=== PATIENT | female | born 1980 | race Caucasian/White ===

== ENCOUNTER 2019-06-11 08:09 | Emergency (ER) | payer OTHER ==
[~2019-06-11] VITALS: Ht 149.9 cm; Wt 65.8 kg
[~2019-06-11 08:09] MED LIST: LAMICTAL 25 MG25 M1 PO; PROZAC 20 MG20 MG PO; XANAX 0.5 MG0.5 M1 PO; XANAX 0.5 MG0.5 MG PO
[2019-06-11 08:16] VITALS: BP 145/91
[2019-06-11] MEDS ORDERED: BUSPIRONE HCL10 MG PO (08:20)
[2019-06-11] MEDS ORDERED: EFFEXOR XR75 MG PO (08:20)
[2019-06-11] MEDS ORDERED: TRAZODONE HCL50 MG PO (08:20)
[2019-06-11] MEDS ORDERED: KLONOPIN0.5 MG PO (08:36)
== END 2019-06-11 08:43 | disposition home or self-care (01) ==
LOC: M.ERS 08:09
DX: F41.9 Anxiety disorder, unspecified (principal); Z76.0 Encounter for issue of repeat prescription; F32.9 Major depressive disorder, single episode, unspecified; Z88.6 Allergy status to analgesic agent

== ENCOUNTER 2021-05-10 06:29 | Emergency (ER) | payer OTHER ==
[~2021-05-10] VITALS: Ht 149.9 cm; Wt 77.1 kg
[~2021-05-10 06:29] MED LIST changes: +BUSPIRONE HCL10 MG PO; +EFFEXOR XR75 MG PO; +KLONOPIN0.5 MG PO; +TRAZODONE HCL50 MG PO
[2021-05-10] MEDS ORDERED: REXULTI0.25 MG PO (07:14)
[2021-05-10] MEDS ORDERED: JOLESSA1 EACH PO (07:14)
[2021-05-10] MEDS ORDERED: FOLTANX TABLET1 EACH PO (07:15)
[2021-05-10] MEDS ORDERED: FOLIC ACID1 MG PO (07:15)
[2021-05-10] MEDS ORDERED: CALCIUM500 MG PO (07:15)
[2021-05-10] MEDS ORDERED: UNISOM25 MG PO (07:15)
[2021-05-10] MEDS ORDERED: FISH OIL 1,0001 EAC9 PO (07:15)
[2021-05-10] MEDS ORDERED: ONE-A-DAY WOMENS PO (07:16)
[2021-05-10 07:38] LABS: ABSOLUTE EOSINOPHILS 0.1 thou/uL (0.0-0.7); ABSOLUTE LYMPHOCYTES 1.1 thou/uL (0.8-5.3); ABSOLUTE MONOCYTES 0.4 thou/uL (0.0-1.2); BASOPHILS 0.4 %; EOSINOPHILS 0.6 %; HEMATOCRIT 42.6 % (37.0-47.0); HEMOGLOBIN 14.2 gm/dL (12.0-15.0); LYMPHOCYTES 12.5 %; MCH 29.6 pg (26.0-34.0); MCHC 33.3 g/dL (28.0-37.0); MCV 89.1 fL (80.0-100.0); MONOCYTES 4.7 %; NUCLEATED RBCS 0 /100WBC; PLATELET COUNT* 482 thou/uL (150-400); POLYS 81.8 %; RBC 4.78 mil/uL (4.20-5.00); RDW-CV 12.8 % (10.5-14.5); WBC 8.5 thou/uL (4.0-11.0)
[2021-05-10 07:50] LABS: CALCIUM 8.7 mg/dL (8.5-10.1); POTASSIUM 4.2 mmol/L (3.5-5.1)
[2021-05-10 07:54] LABS: ALBUMIN 4.3 g/dL (3.4-5.0); TOTAL BILIRUBIN 0.3 mg/dL (<0.1-1.0); TOTAL PROTEIN 8.3 g/dL (6.4-8.2)
[2021-05-10 08:00] LABS: ALCOHOL < 10 mg/dL (<10); SALICYLATE < 2.8 mg/dL (2.8-20.0)
[2021-05-10 08:01] LABS: ACETAMINOPHEN < 2 ug/mL (10-30)
[2021-05-10] MEDS ORDERED: CLONAZEPAM 0.50.5 M1 PO (08:14)
[2021-05-10 08:30] LABS: URINE BILIRUBIN NEGATIVE (Negative); URINE BLOOD 2+ (Negative); URINE CLARITY CLEAR; URINE COLOR YELLOW; URINE GLUCOSE-RANDOM NEGATIVE (Negative); URINE KETONES NEGATIVE (Negative); URINE LEUKOCYTES-REFLEX NEGATIVE (Negative); URINE NITRITE-REFLEX NEGATIVE (Negative); URINE PROTEIN NEGATIVE (Negative); URINE UROBILINOGEN 0.2 E.U./dl (0.2-1.0)
[2021-05-10 08:38] LABS: AMP/METHAMP Negative (Negative); BARBITURATES Negative (Negative); BENZODIAZEPINES Negative (Negative); COCAINE Negative (Negative); METHADONE Negative (Negative); OPIATES Negative (Negative); PCP Negative (Negative); THC Negative (Negative)
[2021-05-10 08:43] LABS: BACTERIA-REFLEX 1-9 Few /HPF (None Seen); CASTS None Seen /LPF (None Seen); CRYSTALS None Seen /LPF (None Seen); MUCUS None Seen strn/LPF (None Seen); SQUAMOUS 4-10 Moderate /LPF (0-3); URINE RBC 3-10 Few /HPF (0-2); URINE WBC-REFLEX 0-5 Rare /HPF (0-5)
[2021-05-10 09:01] VITALS: BP 130/83
== END 2021-05-10 09:02 | disposition home or self-care (01) ==
LOC: M.ERS 06:29
PROVIDERS: Emergency Medicine
DX: F41.9 Anxiety disorder, unspecified (principal); F32.9 Major depressive disorder, single episode, unspecified; Z88.6 Allergy status to analgesic agent; Z79.899 Other long term (current) drug therapy

== ENCOUNTER 2021-06-11 05:25 | Emergency (ER) | payer OTHER ==
[~2021-06-11] VITALS: Ht 149.9 cm; Wt 77.1 kg
[~2021-06-11 05:25] MED LIST changes: +CALCIUM500 MG PO; +CLONAZEPAM 0.50.5 M1 PO; +FISH OIL 1,0001 EAC9 PO; +FOLIC ACID1 MG PO; +FOLTANX TABLET1 EACH PO; +JOLESSA1 EACH PO; +ONE-A-DAY WOMENS PO; +REXULTI0.25 MG PO; +UNISOM25 MG PO
[2021-06-11 06:03] LABS: ABSOLUTE EOSINOPHILS 0.1 thou/uL (0.0-0.7); ABSOLUTE LYMPHOCYTES 1.8 thou/uL (0.8-5.3); ABSOLUTE MONOCYTES 0.5 thou/uL (0.0-1.2); ABSOLUTE NEUTROPHILS 3.1 thou/uL (1.6-8.1); BASOPHILS 0.8 %; EOSINOPHILS 1.1 %; HEMATOCRIT 41.4 % (37.0-47.0); HEMOGLOBIN 14.1 gm/dL (12.0-15.0); LYMPHOCYTES 32.4 %; MCHC 34.1 g/dL (28.0-37.0); MONOCYTES 8.7 %; MPV 7.1 fl. (7.2-11.1); NUCLEATED RBCS 0 /100WBC; PLATELET COUNT* 460 thou/uL (150-400); RBC 4.71 mil/uL (4.20-5.00); RDW-CV 13.2 % (10.5-14.5); WBC 5.4 thou/uL (4.0-11.0)
[2021-06-11 06:13] LABS: CALCIUM 8.7 mg/dL (8.5-10.1); POTASSIUM 3.5 mmol/L (3.5-5.1)
[2021-06-11 06:18] LABS: ALBUMIN 4.1 g/dL (3.4-5.0); TOTAL BILIRUBIN 0.4 mg/dL (<0.1-1.0)
[2021-06-11] MEDS ORDERED: ZOFRAN ODT4 MG DISSOLVE (07:34)
[2021-06-11 07:44] VITALS: BP 134/72
== END 2021-06-11 07:45 | disposition home or self-care (01) ==
LOC: M.ERS 05:25
PROVIDERS: Personal Emergency Response Attendant
DX: R11.2 Nausea with vomiting, unspecified (principal); Z20.822 Contact with and (suspected) exposure to COVID-19